=== PATIENT | male | born 1990 | race Caucasian/White ===

== ENCOUNTER 2023-06-20 18:29 | Emergency (ER) | payer SELFPAY ==
[~2023-06-20] VITALS: Ht 165.1 cm; Wt 99.8 kg
[2023-06-20 18:59] VITALS: BP 138/94; TEMP 98.2
[2023-06-20] MEDS ORDERED: ALBUTEROL (0.083%) 2.5MG/3ML NEB HHN STA (19:08)
[2023-06-20] MEDS ORDERED: PREDNISONE 20MG TABLET PO STA (19:08)
[2023-06-20 19:37] VITALS: PULSE 101; RESP 20; O2SAT 94
[2023-06-20] MEDS ORDERED: ALBU6.7H15 INH (20:18)
[2023-06-20] MEDS ORDERED: P50 MT (20:18)
[2023-06-20] MEDS ORDERED: NEBU-270 MC (20:18)
[2023-06-20] MEDS ORDERED: ALBU05 NEB (20:18)
== END 2023-06-20 20:27 | disposition home or self-care (01) ==
LOC: ER 18:29
DX: J45.901 Unspecified asthma with (acute) exacerbation (principal)
CPT/HCPCS: 71045; 94640; 99283; J7512; Z7610 ×3

== ENCOUNTER 2024-03-09 20:27 | Emergency (ER) | payer SELFPAY ==
[~2024-03-09] VITALS: Ht 172.7 cm; Wt 100.0 kg
[~2024-03-09 20:27] MED LIST: ALBU05 NEB; ALBU6.7H15 INH; NEBU-270 MC; P50 MT
[2024-03-09 21:11] VITALS: PULSE 70; RESP 16; O2SAT 97
[2024-03-09] MEDS: ALBUTEROL (0.083%) 2.5MG/3ML NEB HHN SCH (21:11)
[2024-03-09] MEDS: IPRATROPIUM BROMIDE (0.02%) 0.5MG/2.5ML NEB HHN NR (21:12)
[2024-03-09 21:22] LABS: HEMATOCRIT. 45.6 % (42.0-52.0); HEMOGLOBIN. 15.4 g/dL (14.0-18.0); MEAN CORPUSCULAR HEMOGLOBIN 29.2 pg (28.0-32.0); MEAN CORPUSCULAR HGB CONC 33.8 g/dL (31.0-37.0); MEAN CORPUSCULAR VOLUME 86.3 fL (80.0-94.0); MEAN PLATELET VOLUME 7.4 fl (7.4-10.4); PLATELET 224 x1000/uL (130-400); RED BLOOD CELL COUNT 5.29 mill/uL (4.7-6.1); WHITE BLOOD COUNT 7.1 x1000/uL (4.5-11.0)
[2024-03-09 21:23] LABS: DIFFERENTIAL COMMENT 1
[2024-03-09 21:24] LABS: CARBON DIOXIDE 23 mEq/L (21-32); CHLORIDE 107 mEq/L (98-107); POTASSIUM 3.5 mEq/L (3.5-5.1); SODIUM 138 mEq/L (136-145)
[2024-03-09 21:25] LABS: CALCIUM 8.9 mg/dL (8.7-10.4)
[2024-03-09 21:29] LABS: CREATININE 0.9 mg/dL (0.6-1.3); GLUCOSE 121 mg/dL (70-105)
[2024-03-09 21:30] LABS: UREA NITROGEN BLOOD 8 mg/dL (9-23)
[2024-03-09] MEDS: PREDNISONE 20MG TABLET PO NR (21:31)
[2024-03-09 21:49] LABS: PLATELET ESTIMATE NORMAL
[2024-03-09 22:06] VITALS: PULSE 70; RESP 16; O2SAT 97
[2024-03-09] MEDS ORDERED: ALBU6.7H15 INH (23:26)
[2024-03-09] MEDS ORDERED: P20 MT (23:26)
[2024-03-10 01:18] VITALS: BP 121/74; PULSE 77; RESP 17; TEMP 98.1
== END 2024-03-10 01:21 | disposition home or self-care (01) ==
LOC: ER 20:27
DX: J45.901 Unspecified asthma with (acute) exacerbation (principal)
CPT/HCPCS: 80048; 85025; 36415; 71045; 99285; J7512; Z7610